=== PATIENT | male | born 1995 | race Hispanic/Latino ===

== ENCOUNTER 2017-07-12 12:42 | Emergency (ER) | payer OTHER ==
[~2017-07-12] VITALS: Ht 175.3 cm; Wt 52.4 kg
[2017-07-12 13:42] LABS: BASOPHIL COUNT 0.1 K/uL (0-0.1); EOSINOPHIL (%) 0.8 % (0-5); EOSINOPHIL COUNT 0.1 K/uL (0-0.3); HEMATOCRIT 39.9 % (38.0-50.0); IMMATURE GRANULOCYTE (%) 0.4 % (0.0-0.7); IMMATURE GRANULOCYTE COUNT 0.1 K/uL; INSTRUMENT ABS NEUTROPHIL CT 8.1 K/uL; LYMPHOCYTE COUNT 1.8 K/uL (1.0-2.8); MCH 33.3 PG (29.0-34.0); MCHC 36.1 G/DL (30.0-36.0); MCV 92.4 FL (86-99); MEAN PLAT.VOLUME 10.6 uM^3 (9.0-12.4); MONOCYTE (%) 10.3 % (3-12); MONOCYTE COUNT 1.2 K/uL (0-0.8); NEUTROPHIL COUNT 8.1 K/uL (1.8-6.4); PLATELET COUNT 169 K/uL (156-360); RBC DIS.WIDTH-CV 11.7 % (11.8-14.6); RBC DIS.WIDTH-SD 39.7 % (39-53); RED BLOOD COUNT 4.32 M/uL (4.00-5.50); WHITE BLOOD COUNT 11.2 K/uL (4.1-10.2)
[2017-07-12 13:51] LABS: CHLORIDE 106 mEq/L (99-109); POTASSIUM 3.9 mEq/L (3.7-5.4); SODIUM 141 mEq/L (136-147)
[2017-07-12 13:53] LABS: GLUCOSE 105 mg/dL (70-99)
[2017-07-12 13:55] LABS: ANION GAP 12 MEQ/L (2-14); TOTAL BILIRUBIN 0.9 mg/dL (0.0-1.0)
[2017-07-12 13:57] LABS: ALKALINE PHOSPHATASE 60 IU/L (3-129); GFR ESTIMATE (CALCULATED) > 59 mL/min/ (58.99-99999)
[2017-07-12 13:58] LABS: UREA NITROGEN (BUN) 20 mg/dL (9-23)
[2017-07-12] MEDS ORDERED: NAPROXEN500 MG PO (15:30)
[2017-07-12 16:06] VITALS: BP 133/82
[2017-07-13] MEDS ORDERED: IBUPROFEN800 MG PO (15:35)
== END 2017-07-12 16:09 | disposition home or self-care (01) ==
LOC: EME 12:42
PROVIDERS: Physician Assistant
PROC: 3E0T3BZ Introduction of Anesthetic Agent into Peripheral Nerves and Plexi, Percutaneous Approach (ICD-10-PCS; principal; 2017-07-12)
DX: K08.89 Other specified disorders of teeth and supporting structures (principal); L03.211 Cellulitis of face; K03.81 Cracked tooth; K02.9 Dental caries, unspecified; Z87.891 Personal history of nicotine dependence
CPT/HCPCS: 70487; 80053; 83605; 85025; 87040; 99281; 99285; J0696; J1885; J7120